=== PATIENT | male | born 1960 | race Caucasian/White ===

== ENCOUNTER 2021-01-25 11:16 | Emergency (ER) | payer SELFPAY ==
[~2021-01-25] VITALS: Ht 177.8 cm; Wt 99.8 kg
--- NOTE | 2021-01-25 11:22 | NUR ---
BIB [facility] FROM A PARKING LOT,C/O NAUSEA/VOMITING AND DIARRHEA SINCE THIS MORNING. PT A/OX3. TOLERATING R/A WELL WITH NO SOB AT 95%. CONNECTED PT TO POX AND MONITOR
[2021-01-25] MEDS ORDERED: ONDANSETRON HCL/PF 4 MG/2 ML VIAL ONE ×2 (11:37→14:35)
--- NOTE | 2021-01-25 11:40 | NUR ---
IV ESTABLISHED #20G L AC. LABS COLLECTED AND SENT.
[2021-01-25 11:43] LABS: BASOPHILS % (AUTO) 0.1 % (0.0-2.0); EOSINOPHILS % (AUTO) 0.7 % (0.0-6.0); HEMATOCRIT 52 % (39-51); HEMOGLOBIN 17.2 g/dL (13.5-17.5); LYMPHOCYTES # (AUTO) 0.5 K/uL (0.8-4.8); LYMPHOCYTES % (AUTO) 2.9 % (20.0-44.0); MEAN CORPUSCULAR HGB CONC 33 g/dl (31.0-36.0); MEAN CORPUSCULAR VOLUME 92 fL (80-96); MONOCYTES % (AUTO) 6.5 % (2.0-12.0); NEUTROPHILS # (AUTO) 14.4 K/uL (1.8-8.9); NEUTROPHILS % (AUTO) 89.8 % (43.0-81.0); PLATELET COUNT (AUTO) 257 K/uL (150-450); RED BLOOD CELL COUNT(AUTO) 5.65 MIL/uL (4.5-6.0); WHITE BLOOD COUNT (AUTO) 16.1 K/uL (4.3-11.0)
[2021-01-25] MEDS: ONDANSETRON HCL/PF 4 MG/2 ML VIAL IVP ONE (11:43)
[2021-01-25] MEDS: IV NS 0.9% 1,000 ML BAG IV ONE (11:44)
--- NOTE | 2021-01-25 11:44 | NUR ---
URINAL PROVIDED. PT UNABLE TO PROVIDE URINE AT THIS TIME.
--- NOTE | 2021-01-25 11:53 | NUR ---
BS 137
[2021-01-25 12:10] LABS: CALCIUM, SERUM 9.6 mg/dL (8.5-10.1); CREATININE 1.3 mg/dL (0.6-1.3); POTASSIUM 4.5 mmol/L (3.5-5.1)
[2021-01-25 12:15] LABS: ALBUMIN 4.3 g/dL (3.4-5.0); BILIRUBIN,DIRECT 0.1 mg/dL (0.0-0.2); BILIRUBIN,TOTAL 0.6 mg/dL (0.2-1.0); TOTAL PROTEIN, SERUM 8.3 g/dL (6.4-8.2)
[2021-01-25] MEDS ORDERED: MORPHINE SULFATE INJ 4 MG/ML DISP.SYRIN ONE (12:17)
[2021-01-25] MEDS: MORPHINE SULFATE INJ 2 MG/ML DISP.SYRIN IV ONE (12:20)
--- NOTE | 2021-01-25 12:50 | NUR ---
PT TAKEN TO CT VIA RUBIO
--- NOTE | 2021-01-25 13:06 | NUR ---
PT RETURNED TO ER BED 6 VIA [facility]BIO
--- NOTE | 2021-01-25 13:35 | NUR ---
URINE COLLECTED AND SENT TO LAB
[2021-01-25] MEDS ORDERED: AMOX-430 PO (13:37)
[2021-01-25] MEDS ORDERED: DIPH1TAB PO (13:37)
[2021-01-25] MEDS ORDERED: DIPHENOXYLATE HCL/ATROP SULF 1 UDTAB TABLET ONE (13:48)
[2021-01-25] MEDS: DIPHENOXYLATE HCL/ATROP SULF 1 UDTAB TABLET PO ONE (14:05)
[2021-01-25] MEDS: ONDANSETRON HCL/PF 4 MG/2 ML VIAL IV ONE (14:50)
--- NOTE | 2021-01-25 14:50 | NUR ---
Patient discharged to home in stable condition. rx Written and verbal after care instructions given. Patient verbalizes understanding of instruction. PT ambulatory with a steady gait
[2021-01-25 15:03] VITALS: BP 138/73
== END 2021-01-25 15:03 | disposition home or self-care (01) ==
LOC: ER 11:37
DX: K52.9 Noninfective gastroenteritis and colitis, unspecified (principal); R10.84 Generalized abdominal pain
CPT/HCPCS: 36415; 71045; 74176; 80048; 80076; 80307; 80320; 82962; 83690; 85025; 96361; 96374; 96375; 96376; 99285; J2270; J2405 ×2; J7030; G0480